=== PATIENT | male | born 1965 | race African-American/Black ===

== ENCOUNTER 2017-11-24 11:57 | Inpatient (IN) ==
[2017-11-24] MEDS ORDERED: MIDAZOLAM 2 MG/2 ML VIAL ONE (13:02)
[2017-11-24 13:40] LABS: Basophils % 0.5 % (0.0-0.8); Eosinophils # 0.1 10*3/uL (0.0-0.87); Hematocrit 38.3 VOL% (42.0-52.0); Hemoglobin 12.2 GM/DL (14.0-18.0); Immature Granulocytes % 2.6 %; Immature Granulocytes Absolute 0.15 #; Lymphocytes # 1.6 10*3/uL (1.4-4.0); Lymphocytes % 26.9 % (21.2-54.2); Mean Corpuscular HGB Conc 31.9 GM/DL (32-36); Mean Corpuscular Hemoglobin 23 PG (27-34); Mean Corpuscular Volume 71.7 FL (87-102); Mean Platelet Volume 10.7 FL (9.6-12.0); Monocytes # 0.5 10*3/uL (0.11-0.8); Monocytes % 7.9 % (1.7-12.7); Neutrophils # 3.5 10*3/uL (1.4-7.4); Neutrophils % 61.1 % (38.7-73.9); Platelet Count 177 T/CUMM (130-400); Red Blood Count 5.34 MC/CUMM (3.8-5.5); White Blood Count 5.8 T/CUMM (4-12)
[2017-11-24] MEDS ORDERED: MIDAZOLAM 2 MG/2 ML VIAL IV STA (13:42)
[2017-11-24 13:52] LABS: INR 1.1; PT Patient Result 11.6 SECS
[2017-11-24 13:58] LABS: Alanine Aminotransferase 47 U/L (16-61); Albumin 3.7 G/DL (3.4-5.0); Alkaline Phosphatase 50 U/L (45-117); Amylase 73 U/L (25-115); Aspartate Amino Transferase 90 U/L (0-37); Blood Urea Nitrogen 10 MG/DL (7-18); Calcium 8.2 MG/DL (8.5-10.1); Glucose 80 MG/DL (74-106); Osmolality,Calculated 280.1 MOS/KG (273-304); Sodium 142 MMOL/L (136-145); Total Protein 6.8 G/DL (6.4-8.3)
[2017-11-24] MEDS ORDERED: ONDANSETRON 4 MG/2 ML VIAL IV PRN (14:43)
[2017-11-24] MEDS ORDERED: PROMETHAZINE 25 MG/1 ML VIAL IM PRN (14:43)
[2017-11-24] MEDS ORDERED: SODIUM CHLORIDE 0.9% 1,000 ML IV PRN (14:43)
[2017-11-24 15:07] LABS: Hematocrit 41.8 VOL% (42.0-52.0); Hemoglobin 13.6 GM/DL (14.0-18.0)
[2017-11-24] MEDS: HYDROmorphone 2 MG/1 ML VIAL IV PRN (15:35)
[2017-11-24] MEDS: KETOROLAC 15 MG/1 ML VIAL IV SCH ×2 (16:08→20:52)
[2017-11-24] MEDS: PANTOPRAZOLE 40 MG VIAL IV SCH (16:08)
[2017-11-24] MEDS: LACTATED RINGERS 1,000 ML IV SCH ×2 (16:08→22:37)
[2017-11-24 20:56] LABS: Hematocrit 37.1 VOL% (42.0-52.0)
[2017-11-25] MEDS: KETOROLAC 15 MG/1 ML VIAL IV SCH ×4 (02:09→20:17)
[2017-11-25 03:18] LABS: Basophils % 0.3 % (0.0-0.8); Eosinophils # 0.1 10*3/uL (0.0-0.87); Eosinophils % 1.2 % (0.00-10.9); Hematocrit 34.6 VOL% (42.0-52.0); Hemoglobin 11.4 GM/DL (14.0-18.0); Immature Granulocytes % 0.3 %; Immature Granulocytes Absolute 0.02 #; Lymphocytes # 1.3 10*3/uL (1.4-4.0); Lymphocytes % 19.2 % (21.2-54.2); Mean Corpuscular HGB Conc 32.9 GM/DL (32-36); Mean Corpuscular Hemoglobin 23 PG (27-34); Mean Corpuscular Volume 68.7 FL (87-102); Mean Platelet Volume 9.8 FL (9.6-12.0); Monocytes # 0.7 10*3/uL (0.11-0.8); Monocytes % 10.6 % (1.7-12.7); Neutrophils # 4.7 10*3/uL (1.4-7.4); Neutrophils % 68.4 % (38.7-73.9); Platelet Count 152 T/CUMM (130-400); Red Blood Count 5.04 MC/CUMM (3.8-5.5); Red Cell Distribution Width 16.8 % (9.3-17.3); White Blood Count 6.9 T/CUMM (4-12)
[2017-11-25 03:45] LABS: Albumin 2.9 G/DL (3.4-5.0); Bilirubin,Total 1.5 MG/DL (0.2-1.0); Calcium 8.2 MG/DL (8.5-10.1); Osmolality,Calculated 288.7 MOS/KG (273-304); Potassium 4.1 MMOL/L (3.5-5.1); Total Protein 5.4 G/DL (6.4-8.3)
[2017-11-25] MEDS ORDERED: ENOXAPARIN 40 MG/0.4 ML SYRINGE SUBCUT SCH (07:33)
[2017-11-25 09:17] LABS: Hematocrit 37.2 VOL% (42.0-52.0); Hemoglobin 12.1 GM/DL (14.0-18.0)
[2017-11-25] MEDS: PANTOPRAZOLE 40 MG VIAL IV SCH (15:18)
[2017-11-25] MEDS: HYDROmorphone 2 MG/1 ML VIAL IV PRN (15:40)
[2017-11-25] MEDS: ENOXAPARIN 40 MG/0.4 ML SYRINGE SUBCUT SCH (20:17)
[2017-11-26] MEDS: HYDROmorphone 2 MG/1 ML VIAL IV PRN (00:35)
[2017-11-26] MEDS: KETOROLAC 15 MG/1 ML VIAL IV SCH ×4 (03:35→21:15)
[2017-11-26 04:45] LABS: Basophils % 0.3 % (0.0-0.8); Eosinophils # 0.2 10*3/uL (0.0-0.87); Eosinophils % 3.3 % (0.00-10.9); Hemoglobin 11.8 GM/DL (14.0-18.0); Immature Granulocytes % 0.3 %; Immature Granulocytes Absolute 0.02 #; Lymphocytes # 2.1 10*3/uL (1.4-4.0); Mean Corpuscular HGB Conc 32.8 GM/DL (32-36); Mean Corpuscular Hemoglobin 23 PG (27-34); Mean Platelet Volume 10.6 FL (9.6-12.0); Monocytes # 0.8 10*3/uL (0.11-0.8); Monocytes % 13.4 % (1.7-12.7); Neutrophils % 48.7 % (38.7-73.9); Platelet Count 156 T/CUMM (130-400); Red Blood Count 5.22 MC/CUMM (3.8-5.5); Red Cell Distribution Width 17.2 % (9.3-17.3); White Blood Count 6.1 T/CUMM (4-12)
[2017-11-26 05:13] LABS: Calcium 8.2 MG/DL (8.5-10.1); Osmolality,Calculated 278.5 MOS/KG (273-304); Potassium 4.6 MMOL/L (3.5-5.1)
[2017-11-26] MEDS: PANTOPRAZOLE 40 MG VIAL IV SCH (15:21)
[2017-11-26] MEDS: ENOXAPARIN 40 MG/0.4 ML SYRINGE SUBCUT SCH (21:15)
[2017-11-27] MEDS: KETOROLAC 15 MG/1 ML VIAL IV SCH ×2 (03:40→08:59)
[2017-11-27 06:08] LABS: Hematocrit 35.3 VOL% (42.0-52.0); Hemoglobin 11.5 GM/DL (14.0-18.0)
[2017-11-27 12:12] LABS: Hematocrit 35.7 VOL% (42.0-52.0); Hemoglobin 11.8 GM/DL (14.0-18.0)
[2017-11-27] MEDS: PANTOPRAZOLE 40 MG VIAL IV SCH (15:27)
[2017-11-27] MEDS: ENOXAPARIN 40 MG/0.4 ML SYRINGE SUBCUT SCH (20:37)
[2017-11-28 14:07] VITALS: BP 137/92
== END 2017-11-28 13:35 | disposition home or self-care (01) | DRG 964 ==
LOC: EDUNIT# → EDBD → N.ED 11:57 → N.EDINP 13:31 → N.ICU 14:30 → N.3E 11-26 11:33
PROVIDERS: ADMIT Surgery; ATTEND Surgery